=== PATIENT | female | born 1995 | race African-American/Black ===

== ENCOUNTER 2016-11-27 22:47 | Emergency (ER) | payer MEDICAID ==
[~2016-11-27] VITALS: Ht 167.6 cm; Wt 62.1 kg
--- NOTE | 2016-11-27 22:50 | NUR ---
PT A/OX4 BREATHING EFFORTLESSLY ON ROOM AIR, PT STATES SHE ATE SOMETHING WITH CASHEWS AND STARTED HAVING SOB AND FACE SWELLING, PT STATES SHE GAVE HERSELF HER EPI-PEN AND CLARITIN D PRIOR TO CALLING 911, PT DENIES SOB AT THIS TIME BUT PT EYES ARE STILL SWOLLEN AND CHEEKS ARE SWOLLEN, PT SPEAKING IN FULL SENTANCES WITH NO TONGUE SWELLING NOTED, IV PLACED PRIOR TO ARRIVAL, PT FRIEND AT BEDSIDE, PT ON MONITOR, MD MUSTAFA AT BEDSIDE, WILL CONTINUE TO MONITOR.
[2016-11-27] MEDS ORDERED: EPINEPHRINE (1:1000) 1 MG/ML AMPUL ONE (22:51)
[2016-11-27] MEDS ORDERED: diphenhydrAMINE HCL 50 MG/ML VIAL ONE (22:51)
[2016-11-27] MEDS ORDERED: DEXAMETHASONE SOD PHOSPHATE 10 MG/ML VIAL ONE (22:51)
[2016-11-27] MEDS ORDERED: FAMOTIDINE/PF INJ 20 MG/2 ML VIAL IV ONE ×2 (22:52→23:00)
[2016-11-27] MEDS ORDERED: DEXAMETHASONE SOD PHOSPHATE 10 MG/ML VIAL IV ONE (23:00)
[2016-11-27] MEDS ORDERED: EPINEPHRINE (1:1000) MDV 30 MG/30ML VIAL IM ONE (23:00)
[2016-11-27] MEDS ORDERED: diphenhydrAMINE HCL 50 MG/ML VIAL IV ONE (23:00)
--- NOTE | 2016-11-28 | NUR ---
PT STATES SHE IS FEELING ALOT BETTER AND THE SWELLING HAS GONE DOWN WILL CONTINUE TO MONITOR.
--- NOTE | 2016-11-28 02:30 | NUR ---
PT FEELING BETTER, VSS, PT ON MONITOR, MD MADE AWARE WILL CONTINUE TO MONITOR.
--- NOTE | 2016-11-28 04:30 | NUR ---
PT SLEEPING IN NO APPARENT DISTRESS, PT ON MONITOR, MD DARRIUS MADE AWARE WILL CONTINUE TO MONITOR.
[2016-11-28] MEDS ORDERED: diphenhydrAMINE HCL 50 MG/ML VIAL IV ONE (05:00)
[2016-11-28] MEDS ORDERED: diphenhydrAMINE HCL 50 MG/ML VIAL ONE (05:06)
[2016-11-28 05:29] VITALS: BP 122/71
--- NOTE | 2016-11-28 05:31 | NUR ---
Patient discharged to home in stable condition. Written and verbal after care instructions given. Patient verbalizes understanding of instruction.IV removed. Catheter intact and site benign. Pressure and 4x4 applied to site. No bleeding noted.
== END 2016-11-28 05:31 | disposition home or self-care (01) ==
LOC: ER 22:49
DX: T78.01XA Anaphylactic reaction due to peanuts, initial encounter (principal); Z91.010 Allergy to peanuts; Y92.89 Other specified places as the place of occurrence of the external cause
CPT/HCPCS: A4606; J0171; J1100; J1200; J3490; J7030; Z7610

== ENCOUNTER 2017-07-06 07:56 | Emergency (ER) | payer OTHER ==
[~2017-07-06] VITALS: Ht 162.6 cm; Wt 57.6 kg
[2017-07-06 07:59] VITALS: BP 120/63
== END 2017-07-06 08:33 | disposition home or self-care (01) ==
LOC: ER 07:58
DX: J06.9 Acute upper respiratory infection, unspecified (principal); Z91.010 Allergy to peanuts
CPT/HCPCS: A4606; Z7610

== ENCOUNTER 2018-08-10 21:57 | Emergency (ER) | payer OTHER ==
--- NOTE | 2018-08-10 22:22 | NUR ---
PER HVAC FIELD SERVICE TECHNICIAN, PATIENT LEFT.
== END 2018-08-10 22:23 | disposition left against medical advice (07) ==
LOC: ER 22:01
DX: Z53.21 Procedure and treatment not carried out due to patient leaving prior to being seen by health care provider (principal)

== ENCOUNTER 2019-06-30 21:37 | Emergency (ER) | payer OTHER ==
[~2019-06-30] VITALS: Ht 162.6 cm; Wt 58.1 kg
--- NOTE | 2019-06-30 21:55 | NUR ---
PT CAME INTO THE ED D/T ALELRGIC REACTION. +SOB, AUDIBLE WHEEZING NOTED. + NAUSEA. PT AAOX4, SHALLOW RESPIRATION. PT CONNECTED TO THE CENTER MAKER HAND AND POX
--- NOTE | 2019-06-30 21:58 | NUR ---
[place] AT BEDSIDE
[2019-06-30] MEDS ORDERED: methylPREDNISolone SOD SUCC 125 MG/2ML VIAL ONE (22:15)
[2019-06-30] MEDS ORDERED: IPRATROPIUM NEB FS 0.5 MG/2.5 ML AMPUL.NEB ONE (22:17)
[2019-06-30] MEDS ORDERED: ALBUTEROL FS 2.5 MG/3 ML VIAL.NEB ONE (22:17)
[2019-06-30] MEDS ORDERED: ALBUTEROL FS 2.5 MG/3 ML VIAL.NEB CONTNEB ONE (22:30)
[2019-06-30] MEDS ORDERED: methylPREDNISolone SOD SUCC 125 MG/2ML VIAL IV ONE (22:30)
[2019-06-30] MEDS ORDERED: IV NS 0.9% 1,000 ML BAG IV ONE (22:30)
[2019-06-30] MEDS ORDERED: IPRATROPIUM NEB FS 0.5 MG/2.5 ML AMPUL.NEB NEB ONE (22:30)
--- NOTE | 2019-06-30 23:42 | NUR ---
IV removed. Catheter intact and site benign. Pressure and 4x4 applied to site. No bleeding noted.Patient discharged to home in stable condition. Written and verbal after care instructions given. Patient verbalizes understanding of instruction.
[2019-06-30 23:43] VITALS: BP 113/55
== END 2019-06-30 23:44 | disposition home or self-care (01) ==
LOC: ER 21:45
DX: T78.09XA Anaphylactic reaction due to other food products, initial encounter (principal); Z91.010 Allergy to peanuts; Z60.2 Problems related to living alone
CPT/HCPCS: 94644; 96374; 99285; J2930; J7030